=== PATIENT | male | born 1945 | race Caucasian/White ===

== ENCOUNTER 2023-03-04 07:01 | Emergency (ER) | payer OTHER ==
[2023-03-04] MEDS ORDERED: Acetaminophen 325 MG TAB ONE (07:28)
== END 2023-03-04 08:15 | disposition home or self-care (01) ==
LOC: NAV ERS 07:01 → EEVIPCON 07:01 → NAV ERS 08:15
DX: S23.41XA Sprain of ribs, initial encounter (principal); S29.012A Strain of muscle and tendon of back wall of thorax, initial encounter; I10 Essential (primary) hypertension; E11.9 Type 2 diabetes mellitus without complications; E78.00 Pure hypercholesterolemia, unspecified; G89.29 Other chronic pain; M54.2 Cervicalgia; W07.XXXA Fall from chair, initial encounter; Z79.4 Long term (current) use of insulin; Z79.899 Other long term (current) drug therapy